=== PATIENT | female | born 1990 | race Caucasian/White ===

== ENCOUNTER → 2017-12-28 | Outpatient (CLI) | payer OTHER | LOC: M.RAD 17:00 → M.MRI 17:30 | DX: M51.16 Intervertebral disc disorders with radiculopathy, lumbar region (principal); M79.661 Pain in right lower leg; R63.4 Abnormal weight loss ==

== ENCOUNTER → 2018-02-04 | Outpatient (CLI) | payer OTHER | LOC: M.ULTRA 07:52 | DX: R10.9 Unspecified abdominal pain (principal); N13.30 Unspecified hydronephrosis ==